=== PATIENT | male | born 1940 | race Caucasian/White ===

== ENCOUNTER 2023-10-09 14:52 | Inpatient (IN) | payer OTHER, MEDICAID ==
[~2023-10-09] VITALS: Ht 162.6 cm; Wt 68.0 kg
[~2023-10-09 14:52] MED LIST: ACET-8296 PO; BISA10SU62 RC; CALC500T46 PO; COL250 PO; HYDR-4004 PO; MAGN400S60 PO; MULT-404 PO; POLY1POW PO; SIMV10TA93 PO; VITA20002 PO
[2023-10-09 14:54] VITALS: BP 154/76; PULSE 105; RESP 21; TEMP 97.9; O2SAT 100
[2023-10-09 15:06] VITALS: PULSE 112; O2SAT 98
[2023-10-09 16:30] LABS: BASOPHILS % (AUTO) 0.1 % (0.0-2.0); EOSINOPHILS # (AUTO) 0.3 K/uL (0-0.4); EOSINOPHILS % (AUTO) 2.4 % (0.0-4.0); HEMATOCRIT 32.6 % (36-52); HEMOGLOBIN 10.7 g/dL (12.0-18.0); LYMPHOCYTES # (AUTO) 0.7 K/uL (2.0-11.5); LYMPHOCYTES % (AUTO) 5.7 % (20.5-51.1); MEAN CORPUSCULAR HEMOGLOBIN 29 pg (27-31); MEAN CORPUSCULAR HGB CONC 33 g/dL (33-37); MEAN CORPUSCULAR VOLUME 87.1 fL (80-94); MONOCYTES # (AUTO) 0.8 K/uL (0.8-1.0); NEUTROPHILS # (AUTO) 9.8 K/uL (1.8-7.7); NEUTROPHILS % (AUTO) 84.8 % (42.2-75.2); PLATELET COUNT (AUTO) 272 K/uL (140-450); RED BLOOD CELL COUNT(AUTO) 3.75 MIL/uL (4.20-6.10); RED CELL DISTRIBUTION WIDTH 17.8 % (11.6-13.7); WHITE BLOOD COUNT (AUTO) 11.5 K/uL (4.8-10.8)
[2023-10-09] MEDS ORDERED: NACL 0.9% 1,000 ML IV ONE (16:45)
[2023-10-09] MEDS ORDERED: PIPERACILLIN/TAZOBACTAM 3.375 GM in DEXTROSE 5% 50 ML IV ONE (16:45)
[2023-10-09] MEDS ORDERED: PIPERACILLIN/TAZOBACTAM 3.375 GM VIAL IV ONE (16:48)
[2023-10-09 16:51] LABS: SODIUM SERUM 138 mmol/L (136-145)
[2023-10-09 16:51] LABS: BLOOD GAS BASE EXCESS 18.2 mmol/L (-2.0-2.0); BLOOD GAS HCO3 44.7 mmol/L (22-26); BLOOD GAS PCO2 60.9 mmHg (35-45); BLOOD GAS PH 7.484 (7.35-7.45); BLOOD GAS PO2 119.6 mmHg (75-100)
[2023-10-09 16:52] LABS: BLOOD GAS O2 SAT% 98.2 % (92.0-98.5)
[2023-10-09 16:59] LABS: LACTIC ACID 0.9 mmol/L (0.4-2.0)
[2023-10-09 17:00] VITALS: PULSE 112; O2SAT 98
[2023-10-09 17:14] LABS: ALANINE AMINOTRANSFERASE 20 U/L (12-78); ALBUMIN 2.9 g/dL (3.4-5.0); ALKALINE PHOSPHATASE 103 U/L (50-136); ANION GAP 8.5 (8-16); ASPARTATE AMINOTRANSFERASE 18 U/L (15-37); CALCIUM 10.1 mg/dL (8.5-10.1); CHLORIDE 90 mmol/L (98-107); CREATINE KINASE, TOTAL 32 U/L (39-308); CREATININE 1.1 mg/dL (0.6-1.3); GLUCOSE 121 mg/dL (74-106); TOTAL BILIRUBIN 0.4 mg/dL (0.0-1.0); TOTAL PROTEIN, SERUM 7.3 g/dL (6.4-8.2); UREA NITROGEN, BLOOD 53 mg/dL (7-18)
[2023-10-09] MEDS ORDERED: KCL 20 MEQ IN 100 mL PREMIX 200 ML IV ONE (17:20)
[2023-10-09] MEDS ORDERED: MAG SULF 2000 MG/WATER PREMIX 50 ML IV ONE (17:20)
[2023-10-09 17:21] LABS: POTASSIUM 2.9 mmol/L (3.5-5.1)
[2023-10-09 17:22] LABS: CARBON DIOXIDE 42.4 mmol/L (21-32)
[2023-10-09 17:43] VITALS: PULSE 112; PULSE 116; O2SAT 97; O2SAT 98
[2023-10-09] MEDS: NACL 0.9% 1,000 ML IV SCH (18:29)
[2023-10-09] MEDS ORDERED: LORazepam 2 MG/ML VIAL IVP ONE (19:05)
[2023-10-09] MEDS ORDERED: LORazepam 2 MG/ML VIAL ONE (19:16)
[2023-10-09] MEDS ORDERED: LORazepam 2 MG/ML VIAL IVP STA (19:26)
[2023-10-09] MEDS ORDERED: MIDAZOLAM MDV 50 MG in NACL 0.9% 40 ML IV PRN (19:30)
[2023-10-09] MEDS ORDERED: MIDAZOLAM MDV 50 MG/10 ML VIAL IV ONE (19:40)
[2023-10-09 20:22] VITALS: O2SAT 95
[2023-10-09] MEDS ORDERED: POTASSIUM CHLORIDE 10 MEQ TABER PO PRN (21:45)
[2023-10-09] MEDS ORDERED: ZOLPIDEM 10 MG TAB PO PRN (21:45)
[2023-10-09] MEDS ORDERED: ACETAMINOPHEN 325 MG TAB PO PRN (21:45)
[2023-10-09] MEDS ORDERED: ONDANSETRON 4 MG/2 ML VIAL IVP PRN (21:45)
[2023-10-09] MEDS ORDERED: MORPHINE SULFATE 2 MG/ML SYR IVP PRN (21:45)
[2023-10-09] MEDS ORDERED: DOCUSATE SODIUM 100 MG GELCAP PO PRN (21:45)
[2023-10-09] MEDS ORDERED: MAG SULF 2000 MG/WATER PREMIX 50 ML IV PRN (21:45)
[2023-10-09] MEDS ORDERED: fentaNYL citrate 1 MG in NACL 0.9% 80 ML IV PRN (22:15)
[2023-10-09] MEDS ORDERED: fentaNYL citrate 0.05 MG/ML VIAL ONE (22:18)
[2023-10-09 23:18] VITALS: PULSE 81; O2SAT 98
[2023-10-10] VITALS (7 sets, daily range): PULSE 64–125; RESP 21; O2SAT 95–100
[2023-10-10] MEDS ORDERED: PIPERACILLIN/TAZOBACTAM 3.375 GM VIAL IV ONE ×6 (00:36→23:36)
[2023-10-10] MEDS ORDERED: NOREPINEPHRINE 4 MG in DEXTROSE 5% 250 ML IV STA (00:49)
[2023-10-10] MEDS ORDERED: NACL 0.9% 500 ML IV ONE (00:50)
[2023-10-10] MEDS ORDERED: PROPOFOL 1000 MG/100 ML PREMIX 100 ML IV STA (00:56)
[2023-10-10] MEDS: PIPERACILLIN/TAZOBACTAM 3.375 GM in DEXTROSE 5% 50 ML IV SCH ×4 (00:57→19:02)
[2023-10-10] MEDS ORDERED: NOREPINEPHRINE 4 MG/4 ML VIAL IV ONE ×6 (01:24→13:01)
[2023-10-10] MEDS: ACETAMINOPHEN 650 MG SUPP RC PRN ×2 (01:53→14:01)
[2023-10-10 02:01] LABS: APPEARANCE,URINE CLEAR (CLEAR); BILIRUBIN,URINE NEGATIVE (NEGATIVE); BLOOD, URINE 3+ (NEGATIVE); COLOR,URINE YELLOW (YELLOW); LEUKOCYTE ESTERASE ,URINE 3+ (NEGATIVE); NITRITE, URINE NEGATIVE (NEGATIVE); PH,URINE 8.5 (5.0-9.0); PROTEIN,URINE 2+ (NEGATIVE); UGLUCOSE NEGATIVE (NEGATIVE); UROBILINOGEN,URINE 0.2 EU/dL (0.2 - 1)
[2023-10-10 02:03] LABS: RBC,URINE TOO NUMEROUS TO COUN /HPF (0-5)
[2023-10-10 02:04] LABS: BACTERIA,URINE >30 (MANY) /HPF (None Seen); MUCUS,URINE 1+ /LPF (None Seen); SQUAMOUS EPITHELIAL CELL,UR 0-3 (FEW) /LPF (0-3 (FEW))
[2023-10-10 03:25] LABS: FLU A ANTIGEN negative (NEGATIVE); FLU B ANTIGEN NEGATIVE (NEGATIVE)
[2023-10-10 05:44] LABS: HEMATOCRIT 33.2 % (36-52); HEMOGLOBIN 10.7 g/dL (12.0-18.0); MEAN CORPUSCULAR HEMOGLOBIN 29 pg (27-31); MEAN CORPUSCULAR HGB CONC 32 g/dL (33-37); MEAN CORPUSCULAR VOLUME 89.3 fL (80-94); PLATELET COUNT (AUTO) 217 K/uL (140-450); RED BLOOD CELL COUNT(AUTO) 3.72 MIL/uL (4.20-6.10); RED CELL DISTRIBUTION WIDTH 18.4 % (11.6-13.7)
[2023-10-10 05:51] LABS: WHITE BLOOD COUNT (AUTO) 27.1 K/uL (4.8-10.8)
[2023-10-10] MEDS ORDERED: NOREPINEPHRINE 4 MG in DEXTROSE 5% 250 ML IV PRN (06:00)
[2023-10-10 07:04] LABS: ALANINE AMINOTRANSFERASE 71 U/L (12-78); ALBUMIN 2.5 g/dL (3.4-5.0); ALKALINE PHOSPHATASE 107 U/L (50-136); ANION GAP 12.3 (8-16); ASPARTATE AMINOTRANSFERASE 118 U/L (15-37); CARBON DIOXIDE 34.2 mmol/L (21-32); CHLORIDE 97 mmol/L (98-107); GLUCOSE 108 mg/dL (74-106); SODIUM SERUM 141 mmol/L (136-145); TOTAL BILIRUBIN 1.5 mg/dL (0.0-1.0); TOTAL PROTEIN, SERUM 6.5 g/dL (6.4-8.2)
[2023-10-10 07:44] LABS: POTASSIUM 2.5 mmol/L (3.5-5.1)
[2023-10-10 07:45] LABS: UREA NITROGEN, BLOOD 62 mg/dL (7-18)
[2023-10-10] MEDS: NACL 0.9% 1,000 ML IV SCH ×2 (07:55→19:02)
[2023-10-10 15:05] LABS: BLOOD GAS HCO3 28.2 mmol/L (22-26); BLOOD GAS PCO2 70.7 mmHg (35-45); BLOOD GAS PH 7.219 (7.35-7.45); BLOOD GAS PO2 103.1 mmHg (75-100)
[2023-10-10 15:06] LABS: BLOOD GAS BASE EXCESS -0.8 mmol/L (-2.0-2.0); BLOOD GAS O2 SAT% 96.7 % (92.0-98.5)
[2023-10-10] MEDS: POTASSIUM CHLORIDE 20% 40 MEQ/15 ML UDC GT SCH ×2 (16:00→22:01)
[2023-10-10] MEDS: NOREPINEPHRINE 8 MG in DEXTROSE 5% 250 ML IV PRN (20:37)
[2023-10-10] MEDS ORDERED: POTASSIUM CHLORIDE 20% 40 MEQ/15 ML UDC ONE (21:59)
[2023-10-11] VITALS (28 sets, daily range): BP systolic 77–147; BP diastolic 32–75; PULSE 56–122; RESP 14–28; TEMP 97.1–98.5; O2SAT 97–100
[2023-10-11] MEDS: PIPERACILLIN/TAZOBACTAM 3.375 GM in DEXTROSE 5% 50 ML IV SCH ×4 (00:15→18:29)
[2023-10-11] MEDS ORDERED: FOAM DRESSING TP PRN (02:15)
[2023-10-11] MEDS ORDERED: PIPERACILLIN/TAZOBACTAM 3.375 GM VIAL IV ONE (05:17)
[2023-10-11] MEDS ORDERED: NOREPINEPHRINE 4 MG/4 ML VIAL IV ONE (06:47)
[2023-10-11] MEDS: NOREPINEPHRINE 8 MG in DEXTROSE 5% 250 ML IV PRN ×2 (06:53→17:01)
[2023-10-11 07:15] LABS: ANION GAP 16.8 (8-16); CALCIUM 8.4 mg/dL (8.5-10.1); CARBON DIOXIDE 27.1 mmol/L (21-32); CHLORIDE 98 mmol/L (98-107); CREATININE 2.3 mg/dL (0.6-1.3); GLUCOSE 75 mg/dL (74-106); SODIUM SERUM 139 mmol/L (136-145)
[2023-10-11 07:17] LABS: POTASSIUM 2.9 mmol/L (3.5-5.1); UREA NITROGEN, BLOOD 61 mg/dL (7-18)
[2023-10-11 07:27] LABS: HEMATOCRIT 28.9 % (36-52); HEMOGLOBIN 9.4 g/dL (12.0-18.0); MEAN CORPUSCULAR HEMOGLOBIN 29 pg (27-31); MEAN CORPUSCULAR HGB CONC 33 g/dL (33-37); MEAN CORPUSCULAR VOLUME 88.9 fL (80-94); PLATELET COUNT (AUTO) 166 K/uL (140-450); RED BLOOD CELL COUNT(AUTO) 3.25 MIL/uL (4.20-6.10); RED CELL DISTRIBUTION WIDTH 17.7 % (11.6-13.7)
[2023-10-11 07:44] LABS: WHITE BLOOD COUNT (AUTO) 41.7 K/uL (4.8-10.8)
[2023-10-11 08:00] LABS: BLOOD GAS PCO2 55.1 mmHg (35-45); BLOOD GAS PH 7.308 (7.35-7.45); BLOOD GAS PO2 89.4 mmHg (75-100)
[2023-10-11 08:01] LABS: BLOOD GAS O2 SAT% 95.6 % (92.0-98.5)
[2023-10-11 08:47] LABS: BASOPHILS % (MANUAL) 0 % (0-2); BLASTS, MANUAL % 0 % (0-0); EOSINOPHILS % (MANUAL) 0 % (0-4); LYMPHOCYTES % (MANUAL) 3 % (20-46); METAMYELOCYTES % 5 % (0-0); MONOCYTES % (MANUAL) 2 % (5-12); MYELOCYTES % 3 % (0-0); OTHER CELLS,MANUAL % 0 (0-0); PLATELET ESTIMATE ADEQUATE; PROMYELOCYTES % 0 % (0-0)
[2023-10-11 08:48] LABS: ANISOCYTOSIS 1+
[2023-10-11] MEDS: KCL 20 MEQ IN 100 mL PREMIX 100 ML IV SCH ×3 (09:41→13:44)
[2023-10-11] MEDS: NACL 0.9% 1,000 ML IV SCH ×2 (09:42→23:40)
[2023-10-11] MEDS: PANTOPRAZOLE 40 MG INJ VIAL IVP SCH (09:43)
[2023-10-11] MEDS: LORazepam 2 MG/ML VIAL IVP PRN (15:36)
[2023-10-11] MEDS ORDERED: PROPOFOL 1000 MG/100 ML PREMIX 100 ML IV ONE (15:53)
[2023-10-11] MEDS ORDERED: PROPOFOL 1000 MG/100 ML PREMIX 100 ML IV PRN (15:55)
[2023-10-11] MEDS ORDERED: MEROPENEM 500 MG VIAL IV ONE (21:51)
[2023-10-11] MEDS ORDERED: AZITHROMYCIN 500 MG INJ VIAL IV ONE (21:52)
[2023-10-11] MEDS: MEROPENEM 500 MG in NACL 0.9% 50 ML IV SCH (21:58)
[2023-10-11] MEDS: AZITHROMYCIN 500 MG in DEXTROSE 5% 250 ML IV SCH (21:58)
[2023-10-11] MEDS: WARFARIN 5 MG TAB PO SCH ×2 (22:00→23:00)
[2023-10-11 23:02] LABS: INR 1.53 (0.8-1.2); PROTHROMBIN TIME 15.8 secs (10.8-13.4)
[2023-10-12] VITALS (35 sets, daily range): BP systolic 100–152; BP diastolic 47–77; PULSE 50–62; RESP 15–24; TEMP 97–98.7; O2SAT 98–100
[2023-10-12] MEDS: NOREPINEPHRINE 8 MG in DEXTROSE 5% 250 ML IV PRN (02:49)
[2023-10-12] MEDS ORDERED: MEROPENEM 500 MG VIAL IV ONE (05:49)
[2023-10-12] MEDS: MEROPENEM 500 MG in NACL 0.9% 50 ML IV SCH ×2 (05:52→20:46)
[2023-10-12 07:07] LABS: HEMATOCRIT 26.4 % (36-52); HEMOGLOBIN 8.5 g/dL (12.0-18.0); MEAN CORPUSCULAR HEMOGLOBIN 29 pg (27-31); MEAN CORPUSCULAR HGB CONC 32 g/dL (33-37); MEAN CORPUSCULAR VOLUME 88.6 fL (80-94); PLATELET COUNT (AUTO) 137 K/uL (140-450); RED BLOOD CELL COUNT(AUTO) 2.98 MIL/uL (4.20-6.10); RED CELL DISTRIBUTION WIDTH 18.6 % (11.6-13.7)
[2023-10-12 07:12] LABS: WHITE BLOOD COUNT (AUTO) 29.4 K/uL (4.8-10.8)
[2023-10-12 07:21] LABS: ANION GAP 13.9 (8-16); CALCIUM 8.5 mg/dL (8.5-10.1); CHLORIDE 104 mmol/L (98-107); CREATININE 2.2 mg/dL (0.6-1.3); GLUCOSE 101 mg/dL (74-106); SODIUM SERUM 141 mmol/L (136-145); UREA NITROGEN, BLOOD 52 mg/dL (7-18)
[2023-10-12 07:24] LABS: POTASSIUM 2.9 mmol/L (3.5-5.1)
[2023-10-12 07:40] LABS: BASOPHILS % (MANUAL) 0 % (0-2); EOSINOPHILS % (MANUAL) 1 % (0-4); LYMPHOCYTES % (MANUAL) 6 % (20-46); MONOCYTES % (MANUAL) 5 % (5-12); PLATELET ESTIMATE SLIGHTLY DECREASED
[2023-10-12] MEDS ORDERED: POTASSIUM CHLORIDE 40 MEQ, LIDOCAINE 1% 25 MG in NACL 0.9% 250 ML IV ONE (08:10)
[2023-10-12 09:34] LABS: INR 1.27 (0.8-1.2); PROTHROMBIN TIME 13.2 secs (10.8-13.4)
[2023-10-12] MEDS ORDERED: POTASSIUM CHLORIDE 20% 40 MEQ/15 ML UDC NG ONE (09:55)
[2023-10-12] MEDS: PANTOPRAZOLE 40 MG INJ VIAL IVP SCH (10:00)
[2023-10-12] MEDS ORDERED: KCL 20 MEQ IN 100 mL PREMIX 200 ML IV SCH ×2 (10:00→12:00)
[2023-10-12] MEDS: NACL 0.9% 1,000 ML IV SCH (10:24)
[2023-10-12] MEDS ORDERED: TPN PER PHARMACY MC PRN (11:00)
[2023-10-12] MEDS ORDERED: INSULIN LISPRO SLIDING SCALE 100 UNITS/ML VIAL SUBQ PRN (11:25)
[2023-10-12] MEDS: BLOOD GLUCOSE MONITORING 1 DEV DEV MC SCH ×3 (12:00→23:42)
[2023-10-12] MEDS ORDERED: KCL 20 MEQ IN 100 mL PREMIX 100 ML IV SCH (16:00)
[2023-10-12] MEDS: AZITHROMYCIN 500 MG in DEXTROSE 5% 250 ML IV SCH (19:20)
[2023-10-12] MEDS: DEXTROSE IV SCH ×3 (19:21)
[2023-10-12] MEDS: MULTIVITAMIN IV SCH ×3 (19:21)
[2023-10-12] MEDS: AMINO ACIDS IV SCH ×3 (19:21)
[2023-10-13] VITALS (39 sets, daily range): BP systolic 101–153; BP diastolic 50–97; PULSE 48–82; RESP 19–27; TEMP 97–99; O2SAT 95–100
[2023-10-13 05:36] LABS: BASOPHILS % (AUTO) 0.2 % (0.0-2.0); EOSINOPHILS # (AUTO) 0.7 K/uL (0-0.4); EOSINOPHILS % (AUTO) 4.4 % (0.0-4.0); HEMATOCRIT 26.1 % (36-52); HEMOGLOBIN 8.5 g/dL (12.0-18.0); LYMPHOCYTES # (AUTO) 0.8 K/uL (2.0-11.5); LYMPHOCYTES % (AUTO) 5.3 % (20.5-51.1); MEAN CORPUSCULAR HEMOGLOBIN 29 pg (27-31); MEAN CORPUSCULAR HGB CONC 33 g/dL (33-37); MEAN CORPUSCULAR VOLUME 88.8 fL (80-94); MONOCYTES # (AUTO) 0.6 K/uL (0.8-1.0); NEUTROPHILS # (AUTO) 12.8 K/uL (1.8-7.7); NEUTROPHILS % (AUTO) 86.1 % (42.2-75.2); PLATELET COUNT (AUTO) 124 K/uL (140-450); RED BLOOD CELL COUNT(AUTO) 2.94 MIL/uL (4.20-6.10); RED CELL DISTRIBUTION WIDTH 18.5 % (11.6-13.7); WHITE BLOOD COUNT (AUTO) 14.8 K/uL (4.8-10.8)
[2023-10-13] MEDS: BLOOD GLUCOSE MONITORING 1 DEV DEV MC SCH ×4 (06:04→23:38)
[2023-10-13 06:06] LABS: ANION GAP 10.4 (8-16); CALCIUM 8.8 mg/dL (8.5-10.1); CARBON DIOXIDE 27.3 mmol/L (21-32); CHLORIDE 111 mmol/L (98-107); CREATININE 1.8 mg/dL (0.6-1.3); GLUCOSE 100 mg/dL (74-106); POTASSIUM 3.7 mmol/L (3.5-5.1); SODIUM SERUM 145 mmol/L (136-145); UREA NITROGEN, BLOOD 43 mg/dL (7-18)
[2023-10-13 06:18] LABS: MAGNESIUM 2.3 mg/dL (1.8-2.4)
[2023-10-13] MEDS: MEROPENEM 500 MG in NACL 0.9% 50 ML IV SCH ×2 (08:51→20:32)
[2023-10-13] MEDS: PANTOPRAZOLE 40 MG INJ VIAL IVP SCH (08:51)
[2023-10-13] MEDS ORDERED: GAUZE TP PRN (11:35)
[2023-10-13] MEDS ORDERED: NON ADHERENT DRESSING TP PRN (11:35)
[2023-10-13] MEDS: GAUZE TP SCH (12:57)
[2023-10-13] MEDS: NON ADHERENT DRESSING TP SCH (12:58)
[2023-10-13] MEDS ORDERED: POTASSIUM PHOSPHATE 15 MM in NACL 0.9% 250 ML IV ONE (13:00)
[2023-10-13] MEDS: AZITHROMYCIN 500 MG in DEXTROSE 5% 250 ML IV SCH (18:28)
[2023-10-13] MEDS: MULTIVITAMIN IV SCH ×12 (19:22→19:32)
[2023-10-13] MEDS: DEXTROSE IV SCH ×12 (19:22→19:32)
[2023-10-13] MEDS: AMINO ACIDS IV SCH ×12 (19:22→19:32)
[2023-10-14] VITALS (32 sets, daily range): BP systolic 105–152; BP diastolic 42–103; PULSE 66–91; RESP 20–25; TEMP 97–101.3; O2SAT 97–100
[2023-10-14] MEDS: LORazepam 2 MG/ML VIAL IVP PRN (00:29)
[2023-10-14] MEDS: GAUZE TP SCH ×2 (01:00→13:53)
[2023-10-14 05:40] LABS: BASOPHILS % (AUTO) 0.1 % (0.0-2.0); EOSINOPHILS # (AUTO) 0.1 K/uL (0-0.4); EOSINOPHILS % (AUTO) 0.3 % (0.0-4.0); HEMATOCRIT 21.8 % (36-52); LYMPHOCYTES # (AUTO) 0.9 K/uL (2.0-11.5); LYMPHOCYTES % (AUTO) 3.6 % (20.5-51.1); MEAN CORPUSCULAR HEMOGLOBIN 29 pg (27-31); MEAN CORPUSCULAR HGB CONC 32 g/dL (33-37); MEAN CORPUSCULAR VOLUME 89.1 fL (80-94); MONOCYTES # (AUTO) 1.3 K/uL (0.8-1.0); MONOCYTES % (AUTO) 5.2 % (1.7-9.3); NEUTROPHILS # (AUTO) 22.8 K/uL (1.8-7.7); NEUTROPHILS % (AUTO) 90.8 % (42.2-75.2); PLATELET COUNT (AUTO) 158 K/uL (140-450); RED BLOOD CELL COUNT(AUTO) 2.44 MIL/uL (4.20-6.10); RED CELL DISTRIBUTION WIDTH 18.5 % (11.6-13.7)
[2023-10-14] MEDS: BLOOD GLUCOSE MONITORING 1 DEV DEV MC SCH ×3 (05:40→17:46)
[2023-10-14 05:50] LABS: WHITE BLOOD COUNT (AUTO) 25.1 K/uL (4.8-10.8)
[2023-10-14 06:11] LABS: ANION GAP 16.2 (8-16); CALCIUM 8.6 mg/dL (8.5-10.1); CARBON DIOXIDE 21.6 mmol/L (21-32); CHLORIDE 112 mmol/L (98-107); CREATININE 2.2 mg/dL (0.6-1.3); GLUCOSE 138 mg/dL (74-106); POTASSIUM 4.8 mmol/L (3.5-5.1); SODIUM SERUM 145 mmol/L (136-145); UREA NITROGEN, BLOOD 52 mg/dL (7-18)
[2023-10-14 06:19] LABS: MAGNESIUM 1.9 mg/dL (1.8-2.4); PHOSPHORUS 4.1 mg/dL (2.5-4.9)
[2023-10-14] MEDS: ACETAMINOPHEN 650 MG SUPP RC PRN (08:42)
[2023-10-14] MEDS: MEROPENEM 500 MG in NACL 0.9% 50 ML IV SCH ×2 (08:42→20:07)
[2023-10-14] MEDS: PANTOPRAZOLE 40 MG INJ VIAL IVP SCH (08:43)
[2023-10-14] MEDS: Z-GUARD PASTE TP PRN ×2 (08:43→18:40)
[2023-10-14] MEDS ORDERED: FUROSEMIDE 40 MG/4 ML VIAL IVP SCH (13:45)
[2023-10-14] MEDS: NON ADHERENT DRESSING TP SCH (13:52)
[2023-10-14] MEDS: AZITHROMYCIN 500 MG in DEXTROSE 5% 250 ML IV SCH (18:29)
[2023-10-14] MEDS: ALBUTEROL SULFATE/IPRATROPIU 3 ML SOL IH PRN (19:29)
[2023-10-14] MEDS: AMINO ACIDS IV SCH ×2 (19:32)
[2023-10-14] MEDS: DEXTROSE 20% IV SCH ×2 (19:32)
[2023-10-15] VITALS (32 sets, daily range): BP systolic 89–132; BP diastolic 44–67; PULSE 63–115; RESP 16–22; TEMP 97.3–98.2; O2SAT 97–100
[2023-10-15] MEDS: BLOOD GLUCOSE MONITORING 1 DEV DEV MC SCH ×5 (00:57→23:47)
[2023-10-15] MEDS: GAUZE TP SCH ×2 (00:58→13:24)
[2023-10-15] MEDS: PIPERACILLIN/TAZOBACTAM 2.25 GM in DEXTROSE 5% 50 ML IV SCH ×4 (04:41→23:38)
[2023-10-15] MEDS ORDERED: PIPERACILLIN/TAZOBACTAM 2.25 GM VIAL IV ONE (04:54)
[2023-10-15 05:37] LABS: BASOPHILS % (AUTO) 0.2 % (0.0-2.0); EOSINOPHILS # (AUTO) 0.4 K/uL (0-0.4); EOSINOPHILS % (AUTO) 1.7 % (0.0-4.0); LYMPHOCYTES # (AUTO) 1.3 K/uL (2.0-11.5); MEAN CORPUSCULAR HEMOGLOBIN 29 pg (27-31); MEAN CORPUSCULAR HGB CONC 32 g/dL (33-37); MEAN CORPUSCULAR VOLUME 88.5 fL (80-94); MONOCYTES # (AUTO) 1.7 K/uL (0.8-1.0); MONOCYTES % (AUTO) 7.9 % (1.7-9.3); NEUTROPHILS # (AUTO) 18.4 K/uL (1.8-7.7); NEUTROPHILS % (AUTO) 84.2 % (42.2-75.2); PLATELET COUNT (AUTO) 118 K/uL (140-450); RED CELL DISTRIBUTION WIDTH 18.3 % (11.6-13.7); WHITE BLOOD COUNT (AUTO) 21.9 K/uL (4.8-10.8)
[2023-10-15 05:46] LABS: HEMOGLOBIN 5.1 g/dL (12.0-18.0)
[2023-10-15 05:47] LABS: HEMATOCRIT 15.9 % (36-52)
[2023-10-15 06:17] LABS: ALANINE AMINOTRANSFERASE 38 U/L (12-78); ALBUMIN 1.6 g/dL (3.4-5.0); ALKALINE PHOSPHATASE 66 U/L (50-136); ANION GAP 13.9 (8-16); ASPARTATE AMINOTRANSFERASE 35 U/L (15-37); CALCIUM 7.9 mg/dL (8.5-10.1); CARBON DIOXIDE 23.8 mmol/L (21-32); CHLORIDE 111 mmol/L (98-107); CREATININE 2.5 mg/dL (0.6-1.3); GLUCOSE 132 mg/dL (74-106); POTASSIUM 3.7 mmol/L (3.5-5.1); SODIUM SERUM 145 mmol/L (136-145); TOTAL BILIRUBIN 0.4 mg/dL (0.0-1.0); TOTAL PROTEIN, SERUM 5.1 g/dL (6.4-8.2)
[2023-10-15 06:19] LABS: UREA NITROGEN, BLOOD 61 mg/dL (7-18)
[2023-10-15 06:20] LABS: MAGNESIUM 2.2 mg/dL (1.8-2.4); PHOSPHORUS 4.5 mg/dL (2.5-4.9)
[2023-10-15] MEDS: PANTOPRAZOLE 40 MG INJ VIAL IVP SCH ×2 (09:30→20:21)
[2023-10-15] MEDS: NON ADHERENT DRESSING TP SCH (13:25)
[2023-10-15] MEDS: NOREPINEPHRINE 8 MG in DEXTROSE 5% 250 ML IV PRN (13:29)
[2023-10-15] MEDS ORDERED: fentaNYL citrate 0.05 MG/ML VIAL ONE (14:02)
[2023-10-15] MEDS ORDERED: MIDAZOLAM 2 MG/2 ML VIAL ONE (14:03)
[2023-10-15] MEDS ORDERED: MIDAZOLAM 2 MG/2 ML VIAL IVP ONE (15:10)
[2023-10-15] MEDS ORDERED: fentaNYL citrate 0.05 MG/ML VIAL IVP ONE (15:10)
[2023-10-15] MEDS ORDERED: LORazepam 1 MG TAB PO PRN (16:10)
[2023-10-15] MEDS: SUCRALFATE 1 GM TAB PO SCH (17:09)
[2023-10-15] MEDS: DEXTROSE 20% IV SCH ×2 (19:32)
[2023-10-15] MEDS: AMINO ACIDS IV SCH ×2 (19:32)
[2023-10-15] MEDS: ALBUTEROL SULFATE/IPRATROPIU 3 ML SOL IH PRN (20:03)
[2023-10-16] VITALS (29 sets, daily range): BP systolic 88–128; BP diastolic 43–88; PULSE 61–75; RESP 15–27; TEMP 97–98.4; O2SAT 95–100
[2023-10-16] MEDS: GAUZE TP SCH ×2 (00:15→12:39)
[2023-10-16 05:41] LABS: BASOPHILS % (AUTO) 0.2 % (0.0-2.0); EOSINOPHILS # (AUTO) 0.8 K/uL (0-0.4); EOSINOPHILS % (AUTO) 4.6 % (0.0-4.0); HEMOGLOBIN 7.6 g/dL (12.0-18.0); LYMPHOCYTES # (AUTO) 1.2 K/uL (2.0-11.5); LYMPHOCYTES % (AUTO) 6.3 % (20.5-51.1); MEAN CORPUSCULAR HEMOGLOBIN 28 pg (27-31); MEAN CORPUSCULAR HGB CONC 33 g/dL (33-37); MEAN CORPUSCULAR VOLUME 84.7 fL (80-94); MONOCYTES # (AUTO) 1.2 K/uL (0.8-1.0); MONOCYTES % (AUTO) 6.7 % (1.7-9.3); NEUTROPHILS # (AUTO) 15.1 K/uL (1.8-7.7); NEUTROPHILS % (AUTO) 82.2 % (42.2-75.2); PLATELET COUNT (AUTO) 128 K/uL (140-450); RED BLOOD CELL COUNT(AUTO) 2.72 MIL/uL (4.20-6.10); RED CELL DISTRIBUTION WIDTH 17.3 % (11.6-13.7); WHITE BLOOD COUNT (AUTO) 18.4 K/uL (4.8-10.8)
[2023-10-16] MEDS: BLOOD GLUCOSE MONITORING 1 DEV DEV MC SCH ×4 (06:07→23:15)
[2023-10-16] MEDS: PIPERACILLIN/TAZOBACTAM 2.25 GM in DEXTROSE 5% 50 ML IV SCH ×3 (06:07→20:36)
[2023-10-16 06:31] LABS: ALANINE AMINOTRANSFERASE 38 U/L (12-78); ALBUMIN 1.5 g/dL (3.4-5.0); ALKALINE PHOSPHATASE 70 U/L (50-136); ANION GAP 10.9 (8-16); ASPARTATE AMINOTRANSFERASE 32 U/L (15-37); CALCIUM 7.9 mg/dL (8.5-10.1); CARBON DIOXIDE 26.7 mmol/L (21-32); CHLORIDE 108 mmol/L (98-107); CREATININE 2.3 mg/dL (0.6-1.3); GLUCOSE 108 mg/dL (74-106); POTASSIUM 3.6 mmol/L (3.5-5.1); SODIUM SERUM 142 mmol/L (136-145); TOTAL BILIRUBIN 0.6 mg/dL (0.0-1.0); TOTAL PROTEIN, SERUM 5.3 g/dL (6.4-8.2); UREA NITROGEN, BLOOD 27 mg/dL (7-18)
[2023-10-16 06:39] LABS: MAGNESIUM 2.3 mg/dL (1.8-2.4); PHOSPHORUS 4.2 mg/dL (2.5-4.9)
[2023-10-16 08:43] LABS: BLOOD GAS BASE EXCESS 0.2 mmol/L (-2.0-2.0); BLOOD GAS HCO3 23.9 mmol/L (22-26); BLOOD GAS O2 SAT% 95.1 % (92.0-98.5); BLOOD GAS PCO2 34.8 mmHg (35-45); BLOOD GAS PH 7.454 (7.35-7.45); BLOOD GAS PO2 77.6 mmHg (75-100)
[2023-10-16] MEDS: SUCRALFATE 1 GM TAB PO SCH ×3 (09:56→18:00)
[2023-10-16] MEDS: PANTOPRAZOLE 40 MG INJ VIAL IVP SCH ×2 (09:56→20:36)
[2023-10-16] MEDS: NON ADHERENT DRESSING TP SCH (12:40)
[2023-10-16] MEDS ORDERED: VANCOMYCIN PER PHARMACY MC PRN (16:25)
[2023-10-16] MEDS ORDERED: VANCOMYCIN 1,000 MG in DEXTROSE 5% 250 ML IV SCH (18:00)
[2023-10-16] MEDS: DEXTROSE 20% IV SCH ×2 (20:00)
[2023-10-16] MEDS: AMINO ACIDS IV SCH ×2 (20:00)
[2023-10-17] VITALS (13 sets, daily range): BP systolic 94–125; BP diastolic 45–63; PULSE 67–82; RESP 16–26; TEMP 97.2–98.6; O2SAT 96–100
[2023-10-17] MEDS: GAUZE TP SCH ×2 (00:47→13:00)
[2023-10-17] MEDS: PIPERACILLIN/TAZOBACTAM 2.25 GM in DEXTROSE 5% 50 ML IV SCH ×3 (04:32→21:02)
[2023-10-17] MEDS: BLOOD GLUCOSE MONITORING 1 DEV DEV MC SCH (05:40)
[2023-10-17] MEDS: SUCRALFATE 1 GM TAB PO SCH ×3 (09:00→16:09)
[2023-10-17] MEDS: PANTOPRAZOLE 40 MG INJ VIAL IVP SCH ×2 (09:04→21:02)
[2023-10-17 09:27] LABS: HEMATOCRIT 22.5 % (36-52); HEMOGLOBIN 7.4 g/dL (12.0-18.0); MEAN CORPUSCULAR HEMOGLOBIN 28 pg (27-31); MEAN CORPUSCULAR HGB CONC 33 g/dL (33-37); MEAN CORPUSCULAR VOLUME 85.8 fL (80-94); PLATELET COUNT (AUTO) 179 K/uL (140-450); RED BLOOD CELL COUNT(AUTO) 2.63 MIL/uL (4.20-6.10); RED CELL DISTRIBUTION WIDTH 17.8 % (11.6-13.7)
[2023-10-17 09:50] LABS: ALANINE AMINOTRANSFERASE 38 U/L (12-78); ALBUMIN 1.3 g/dL (3.4-5.0); ALKALINE PHOSPHATASE 78 U/L (50-136); ANION GAP 8.4 (8-16); ASPARTATE AMINOTRANSFERASE 29 U/L (15-37); CALCIUM 7.9 mg/dL (8.5-10.1); CARBON DIOXIDE 27.2 mmol/L (21-32); CHLORIDE 109 mmol/L (98-107); GLUCOSE 84 mg/dL (74-106); POTASSIUM 3.6 mmol/L (3.5-5.1); SODIUM SERUM 141 mmol/L (136-145); TOTAL BILIRUBIN 0.8 mg/dL (0.0-1.0); TOTAL PROTEIN, SERUM 5.2 g/dL (6.4-8.2); UREA NITROGEN, BLOOD 46 mg/dL (7-18)
[2023-10-17 10:01] LABS: ANISOCYTOSIS 1+; BASOPHILS % (MANUAL) 0 % (0-2); BLASTS, MANUAL % 0 % (0-0); EOSINOPHILS % (MANUAL) 0 % (0-4); LYMPHOCYTES % (MANUAL) 8 % (20-46); METAMYELOCYTES % 0 % (0-0); MONOCYTES % (MANUAL) 4 % (5-12); MYELOCYTES % 0 % (0-0); OTHER CELLS,MANUAL % 0 (0-0); PLATELET ESTIMATE ADEQUATE; PROMYELOCYTES % 0 % (0-0)
[2023-10-17 10:03] LABS: PHOSPHORUS 3.8 mg/dL (2.5-4.9)
[2023-10-17] MEDS ORDERED: VANCOMYCIN 1,000 MG in DEXTROSE 5% 250 ML IV SCH (11:00)
[2023-10-17] MEDS ORDERED: POTASSIUM CHLORIDE 20% 40 MEQ/15 ML UDC GT SCH (12:39)
[2023-10-17] MEDS ORDERED: ALBUMIN HUMAN 25% 100 ML IV SCH (13:00)
[2023-10-17] MEDS: NON ADHERENT DRESSING TP SCH (13:00)
[2023-10-17] MEDS ORDERED: FUROSEMIDE 20 MG/2 ML VIAL IVP SCH (13:00)
[2023-10-17] MEDS: ALBUTEROL SULFATE/IPRATROPIU 3 ML SOL IH PRN (13:01)
[2023-10-17] MEDS: FUROSEMIDE 20 MG/2 ML VIAL IVP SCH ×2 (13:21→20:51)
[2023-10-17] MEDS: MIDODRINE 5 MG TAB PO SCH ×2 (13:22→16:09)
[2023-10-17] MEDS: FERROUS SULFATE 300 MG/5 ML UDC GT SCH (21:02)
[2023-10-18] VITALS (12 sets, daily range): BP systolic 123–136; BP diastolic 38–85; PULSE 67–86; RESP 18–26; TEMP 97.2–98.4; O2SAT 96–99
[2023-10-18] MEDS: GAUZE TP SCH ×2 (01:50→13:23)
[2023-10-18] MEDS: PIPERACILLIN/TAZOBACTAM 2.25 GM in DEXTROSE 5% 50 ML IV SCH ×2 (05:11→13:24)
[2023-10-18 07:33] LABS: BASOPHILS # (AUTO) 0.1 K/uL (0.00-0.22); BASOPHILS % (AUTO) 0.3 % (0.0-2.0); EOSINOPHILS # (AUTO) 0.7 K/uL (0-0.4); EOSINOPHILS % (AUTO) 2.9 % (0.0-4.0); HEMATOCRIT 24.4 % (36-52); HEMOGLOBIN 7.9 g/dL (12.0-18.0); LYMPHOCYTES % (AUTO) 4.2 % (20.5-51.1); MEAN CORPUSCULAR HEMOGLOBIN 28 pg (27-31); MEAN CORPUSCULAR HGB CONC 33 g/dL (33-37); MEAN CORPUSCULAR VOLUME 86.5 fL (80-94); MONOCYTES # (AUTO) 1.7 K/uL (0.8-1.0); MONOCYTES % (AUTO) 6.8 % (1.7-9.3); NEUTROPHILS # (AUTO) 21.4 K/uL (1.8-7.7); NEUTROPHILS % (AUTO) 85.8 % (42.2-75.2); PLATELET COUNT (AUTO) 257 K/uL (140-450); RED BLOOD CELL COUNT(AUTO) 2.82 MIL/uL (4.20-6.10); RED CELL DISTRIBUTION WIDTH 17.5 % (11.6-13.7)
[2023-10-18 08:13] LABS: ALANINE AMINOTRANSFERASE 32 U/L (12-78); ALBUMIN 1.7 g/dL (3.4-5.0); ALKALINE PHOSPHATASE 93 U/L (50-136); ANION GAP 11.8 (8-16); ASPARTATE AMINOTRANSFERASE 26 U/L (15-37); CALCIUM 8.3 mg/dL (8.5-10.1); CARBON DIOXIDE 26.3 mmol/L (21-32); CHLORIDE 107 mmol/L (98-107); CREATININE 2.1 mg/dL (0.6-1.3); GLUCOSE 94 mg/dL (74-106); POTASSIUM 4.1 mmol/L (3.5-5.1); SODIUM SERUM 141 mmol/L (136-145); TOTAL BILIRUBIN 1.1 mg/dL (0.0-1.0); TOTAL PROTEIN, SERUM 6.2 g/dL (6.4-8.2); UREA NITROGEN, BLOOD 43 mg/dL (7-18)
[2023-10-18] MEDS: FERROUS SULFATE 300 MG/5 ML UDC GT SCH ×2 (09:48→21:27)
[2023-10-18] MEDS: SUCRALFATE 1 GM TAB PO SCH ×3 (09:48→17:00)
[2023-10-18] MEDS: PANTOPRAZOLE 40 MG INJ VIAL IVP SCH ×2 (09:48→21:27)
[2023-10-18] MEDS: MIDODRINE 5 MG TAB PO SCH ×3 (09:48→17:00)
[2023-10-18] MEDS: BLOOD GLUCOSE MONITORING 1 DEV DEV FS SCH ×3 (11:30→21:33)
[2023-10-18] MEDS: NON ADHERENT DRESSING TP SCH (13:23)
[2023-10-18] MEDS ORDERED: CEFEPIME 1,000 MG VIAL ONE (21:20)
[2023-10-18] MEDS: CEFEPIME 1,000 MG in DEXTROSE 5% 50 ML IV SCH (21:27)
[2023-10-18] MEDS: Z-GUARD PASTE TP PRN (21:28)
[2023-10-18] MEDS: FLUCONAZOLE 100 MG/NS PREMIX 50 ML IV SCH (22:00)
[2023-10-18] MEDS ORDERED: FLUCONAZOLE 200 MG/NS PREMIX 100 ML IV ONE (22:37)
[2023-10-19] VITALS (14 sets, daily range): BP systolic 118–129; BP diastolic 47–63; PULSE 65–79; RESP 18–20; TEMP 97.2–98.1; O2SAT 94–100
[2023-10-19] MEDS: GAUZE TP SCH ×2 (01:46→13:00)
[2023-10-19 06:34] LABS: BASOPHILS # (AUTO) 0.1 K/uL (0.00-0.22); BASOPHILS % (AUTO) 0.3 % (0.0-2.0); EOSINOPHILS # (AUTO) 0.5 K/uL (0-0.4); EOSINOPHILS % (AUTO) 2.6 % (0.0-4.0); HEMATOCRIT 22.1 % (36-52); HEMOGLOBIN 7.2 g/dL (12.0-18.0); LYMPHOCYTES # (AUTO) 1.1 K/uL (2.0-11.5); LYMPHOCYTES % (AUTO) 5.2 % (20.5-51.1); MEAN CORPUSCULAR HEMOGLOBIN 28 pg (27-31); MEAN CORPUSCULAR HGB CONC 32 g/dL (33-37); MEAN CORPUSCULAR VOLUME 86.7 fL (80-94); MONOCYTES # (AUTO) 1.5 K/uL (0.8-1.0); NEUTROPHILS # (AUTO) 17.8 K/uL (1.8-7.7); NEUTROPHILS % (AUTO) 84.9 % (42.2-75.2); PLATELET COUNT (AUTO) 277 K/uL (140-450); RED BLOOD CELL COUNT(AUTO) 2.55 MIL/uL (4.20-6.10); RED CELL DISTRIBUTION WIDTH 17.5 % (11.6-13.7)
[2023-10-19 06:58] LABS: ANION GAP 12.7 (8-16); CALCIUM 8.4 mg/dL (8.5-10.1); CHLORIDE 112 mmol/L (98-107); CREATININE 1.9 mg/dL (0.6-1.3); GLUCOSE 93 mg/dL (74-106); POTASSIUM 3.7 mmol/L (3.5-5.1); SODIUM SERUM 147 mmol/L (136-145); UREA NITROGEN, BLOOD 37 mg/dL (7-18)
[2023-10-19] MEDS: BLOOD GLUCOSE MONITORING 1 DEV DEV FS SCH ×4 (07:09→20:07)
[2023-10-19] MEDS: Z-GUARD PASTE TP PRN (08:24)
[2023-10-19] MEDS: FERROUS SULFATE 300 MG/5 ML UDC GT SCH ×2 (08:25→21:00)
[2023-10-19] MEDS: MIDODRINE 5 MG TAB PO SCH ×3 (08:25→17:00)
[2023-10-19] MEDS: SUCRALFATE 1 GM TAB PO SCH ×3 (09:00→17:00)
[2023-10-19] MEDS: CEFEPIME 1,000 MG in DEXTROSE 5% 50 ML IV SCH ×2 (09:00→20:06)
[2023-10-19] MEDS: PANTOPRAZOLE 40 MG INJ VIAL IVP SCH ×2 (09:00→21:01)
[2023-10-19] MEDS ORDERED: VANCOMYCIN 1,000 MG in DEXTROSE 5% 250 ML IV SCH (12:00)
[2023-10-19] MEDS: NON ADHERENT DRESSING TP SCH (13:00)
[2023-10-19] MEDS: FLUCONAZOLE 100 MG/NS PREMIX 50 ML IV SCH (22:00)
[2023-10-20] VITALS (17 sets, daily range): BP systolic 114–129; BP diastolic 40–76; PULSE 64–76; RESP 18–20; TEMP 97–98.8; O2SAT 97–100
[2023-10-20] MEDS: GAUZE TP SCH ×2 (01:01→13:00)
[2023-10-20] MEDS: BLOOD GLUCOSE MONITORING 1 DEV DEV FS SCH ×4 (06:42→21:04)
[2023-10-20 07:00] LABS: HEMOGLOBIN 7.8 g/dL (12.0-18.0); MEAN CORPUSCULAR HEMOGLOBIN 28 pg (27-31); MEAN CORPUSCULAR HGB CONC 32 g/dL (33-37); MEAN CORPUSCULAR VOLUME 87.7 fL (80-94); PLATELET COUNT (AUTO) 332 K/uL (140-450); RED BLOOD CELL COUNT(AUTO) 2.73 MIL/uL (4.20-6.10); WHITE BLOOD COUNT (AUTO) 17.4 K/uL (4.8-10.8)
[2023-10-20 07:27] LABS: ALANINE AMINOTRANSFERASE 21 U/L (12-78); ALBUMIN 1.5 g/dL (3.4-5.0); ALKALINE PHOSPHATASE 76 U/L (50-136); ANION GAP 11.8 (8-16); ASPARTATE AMINOTRANSFERASE 21 U/L (15-37); CALCIUM 8.5 mg/dL (8.5-10.1); CHLORIDE 112 mmol/L (98-107); CREATININE 1.9 mg/dL (0.6-1.3); GLUCOSE 80 mg/dL (74-106); POTASSIUM 3.8 mmol/L (3.5-5.1); SODIUM SERUM 146 mmol/L (136-145); TOTAL BILIRUBIN 0.9 mg/dL (0.0-1.0); TOTAL PROTEIN, SERUM 6.1 g/dL (6.4-8.2); UREA NITROGEN, BLOOD 30 mg/dL (7-18)
[2023-10-20 07:54] LABS: MONOCYTES % (MANUAL) 9 % (5-12)
[2023-10-20 07:56] LABS: EOSINOPHILS % (MANUAL) 1 % (0-4)
[2023-10-20 07:57] LABS: LYMPHOCYTES % (MANUAL) 8 % (20-46)
[2023-10-20] MEDS: SUCRALFATE 1 GM TAB PO SCH ×3 (08:33→16:37)
[2023-10-20] MEDS: FERROUS SULFATE 300 MG/5 ML UDC GT SCH ×2 (08:33→21:03)
[2023-10-20] MEDS: MIDODRINE 5 MG TAB PO SCH ×3 (08:33→16:36)
[2023-10-20] MEDS: PANTOPRAZOLE 40 MG INJ VIAL IVP SCH ×2 (08:33→21:03)
[2023-10-20] MEDS: CEFEPIME 1,000 MG in DEXTROSE 5% 50 ML IV SCH ×2 (09:02→21:03)
[2023-10-20] MEDS: NON ADHERENT DRESSING TP SCH (13:00)
[2023-10-21] VITALS (14 sets, daily range): BP systolic 87–141; BP diastolic 39–63; PULSE 62–72; RESP 18–24; TEMP 97.8–99; O2SAT 97–100
[2023-10-21] MEDS: GAUZE TP SCH ×2 (01:23→13:14)
[2023-10-21] MEDS: BLOOD GLUCOSE MONITORING 1 DEV DEV FS SCH ×4 (06:33→20:51)
[2023-10-21 07:12] LABS: BASOPHILS % (AUTO) 0.2 % (0.0-2.0); EOSINOPHILS # (AUTO) 0.4 K/uL (0-0.4); EOSINOPHILS % (AUTO) 2.6 % (0.0-4.0); HEMATOCRIT 22.8 % (36-52); HEMOGLOBIN 7.3 g/dL (12.0-18.0); LYMPHOCYTES # (AUTO) 1.2 K/uL (2.0-11.5); LYMPHOCYTES % (AUTO) 8.2 % (20.5-51.1); MEAN CORPUSCULAR HEMOGLOBIN 28 pg (27-31); MEAN CORPUSCULAR HGB CONC 32 g/dL (33-37); MEAN CORPUSCULAR VOLUME 87.4 fL (80-94); MONOCYTES # (AUTO) 1.3 K/uL (0.8-1.0); MONOCYTES % (AUTO) 8.7 % (1.7-9.3); NEUTROPHILS # (AUTO) 11.8 K/uL (1.8-7.7); NEUTROPHILS % (AUTO) 80.3 % (42.2-75.2); PLATELET COUNT (AUTO) 379 K/uL (140-450); RED CELL DISTRIBUTION WIDTH 16.8 % (11.6-13.7); WHITE BLOOD COUNT (AUTO) 14.7 K/uL (4.8-10.8)
[2023-10-21 07:27] LABS: ALANINE AMINOTRANSFERASE 16 U/L (12-78); ALBUMIN 1.4 g/dL (3.4-5.0); ALKALINE PHOSPHATASE 75 U/L (50-136); ANION GAP 10.6 (8-16); ASPARTATE AMINOTRANSFERASE 15 U/L (15-37); CALCIUM 8.3 mg/dL (8.5-10.1); CARBON DIOXIDE 26.2 mmol/L (21-32); CHLORIDE 113 mmol/L (98-107); CREATININE 1.9 mg/dL (0.6-1.3); GLUCOSE 108 mg/dL (74-106); POTASSIUM 3.8 mmol/L (3.5-5.1); SODIUM SERUM 146 mmol/L (136-145); TOTAL BILIRUBIN 0.7 mg/dL (0.0-1.0); TOTAL PROTEIN, SERUM 5.9 g/dL (6.4-8.2); UREA NITROGEN, BLOOD 29 mg/dL (7-18)
[2023-10-21] MEDS: FERROUS SULFATE 300 MG/5 ML UDC GT SCH ×2 (09:04→20:53)
[2023-10-21] MEDS: MIDODRINE 5 MG TAB PO SCH ×3 (09:04→17:00)
[2023-10-21] MEDS: PANTOPRAZOLE 40 MG INJ VIAL IVP SCH ×2 (09:04→20:39)
[2023-10-21] MEDS: CEFEPIME 1,000 MG in DEXTROSE 5% 50 ML IV SCH ×2 (09:05→20:38)
[2023-10-21] MEDS: SUCRALFATE 1 GM TAB PO SCH ×3 (09:05→17:00)
[2023-10-21] MEDS ORDERED: VANCOMYCIN 750 MG in DEXTROSE 5% 250 ML IV SCH (12:00)
[2023-10-21] MEDS: NON ADHERENT DRESSING TP SCH (13:14)
[2023-10-21] MEDS ORDERED: Gauze TP ×2 (19:37)
[2023-10-21] MEDS ORDERED: FER300L GT (19:37)
[2023-10-21] MEDS ORDERED: [UNRECOGNIZED DRUG - REMARK] TP ×2 (19:37)
[2023-10-21] MEDS ORDERED: Vancomycin Per Pharmacy MC (19:37)
[2023-10-21] MEDS ORDERED: PRO40I IVP (19:37)
[2023-10-21] MEDS ORDERED: SUCR1TAB56 PO (19:37)
[2023-10-21] MEDS ORDERED: HUMSLIDE SUBQ (19:37)
[2023-10-21] MEDS ORDERED: Foam Dressing TP (19:37)
[2023-10-21] MEDS ORDERED: ONDA2SOL45 IVP (19:37)
[2023-10-21] MEDS ORDERED: GLUC-805 FS (19:37)
[2023-10-21] MEDS ORDERED: ALBU3SOL83 IH (19:37)
[2023-10-21] MEDS ORDERED: PRO5 PO (19:37)
[2023-10-21] MEDS ORDERED: LORA-476 PO (19:37)
[2023-10-22] VITALS (11 sets, daily range): BP systolic 124–133; BP diastolic 35–58; PULSE 65–75; RESP 17–21; TEMP 98.3–99.6; O2SAT 96–100
[2023-10-22] MEDS: GAUZE TP SCH ×2 (01:53→13:09)
[2023-10-22] MEDS: BLOOD GLUCOSE MONITORING 1 DEV DEV FS SCH ×3 (07:30→16:15)
[2023-10-22 07:34] LABS: ALANINE AMINOTRANSFERASE 15 U/L (12-78); ALBUMIN 1.5 g/dL (3.4-5.0); ALKALINE PHOSPHATASE 55 U/L (50-136); ANION GAP 13.1 (8-16); ASPARTATE AMINOTRANSFERASE 14 U/L (15-37); CALCIUM 8.9 mg/dL (8.5-10.1); CARBON DIOXIDE 25.7 mmol/L (21-32); CHLORIDE 114 mmol/L (98-107); GLUCOSE 74 mg/dL (74-106); POTASSIUM 3.8 mmol/L (3.5-5.1); SODIUM SERUM 149 mmol/L (136-145); TOTAL BILIRUBIN 0.8 mg/dL (0.0-1.0); TOTAL PROTEIN, SERUM 5.9 g/dL (6.4-8.2); UREA NITROGEN, BLOOD 29 mg/dL (7-18)
[2023-10-22 08:07] LABS: BASOPHILS % (AUTO) 0.4 % (0.0-2.0); EOSINOPHILS # (AUTO) 0.4 K/uL (0-0.4); EOSINOPHILS % (AUTO) 3.5 % (0.0-4.0); HEMATOCRIT 21.2 % (36-52); LYMPHOCYTES % (AUTO) 10.3 % (20.5-51.1); MEAN CORPUSCULAR HEMOGLOBIN 29 pg (27-31); MEAN CORPUSCULAR HGB CONC 33 g/dL (33-37); MEAN CORPUSCULAR VOLUME 87.4 fL (80-94); MONOCYTES % (AUTO) 9.7 % (1.7-9.3); NEUTROPHILS # (AUTO) 7.7 K/uL (1.8-7.7); NEUTROPHILS % (AUTO) 76.1 % (42.2-75.2); PLATELET COUNT (AUTO) 371 K/uL (140-450); RED BLOOD CELL COUNT(AUTO) 2.42 MIL/uL (4.20-6.10); RED CELL DISTRIBUTION WIDTH 16.8 % (11.6-13.7); WHITE BLOOD COUNT (AUTO) 10.1 K/uL (4.8-10.8)
[2023-10-22] MEDS: PANTOPRAZOLE 40 MG INJ VIAL IVP SCH (08:44)
[2023-10-22] MEDS: FERROUS SULFATE 300 MG/5 ML UDC GT SCH (08:52)
[2023-10-22] MEDS: SUCRALFATE 1 GM TAB PO SCH ×3 (08:52→16:42)
[2023-10-22] MEDS: MIDODRINE 5 MG TAB PO SCH ×3 (08:52→16:44)
[2023-10-22] MEDS ORDERED: CEFEPIME 2,000 MG in DEXTROSE 5% 100 ML IV SCH ×2 (09:00→21:00)
[2023-10-22] MEDS ORDERED: DEXT 5% /NACL 0.9% 1,000 ML IV SCH (09:05)
[2023-10-22] MEDS: NON ADHERENT DRESSING TP SCH (13:09)
[2023-10-22] MEDS ORDERED: DEXTROSE 50% 50 ML SYR IVP PRN (13:40)
== END 2023-10-22 17:50 | disposition home health service (06) | DRG 870 ==
LOC: MED 14:52 → MTU 18:04 → MIC 10-10 22:14 → MTU 10-16 23:48
PROVIDERS: ADMIT General Practice; ATTEND General Practice
PROC: 5A1955Z Respiratory Ventilation, Greater than 96 Consecutive Hours (ICD-10-PCS; principal; 2023-10-09)
PROC: 05HM33Z Insertion of Infusion Device into Right Internal Jugular Vein, Percutaneous Approach (ICD-10-PCS; 2023-10-10)
PROC: 30233N1 Transfusion of Nonautologous Red Blood Cells into Peripheral Vein, Percutaneous Approach (ICD-10-PCS; 2023-10-15)
PROC: 0DJ08ZZ Inspection of Upper Intestinal Tract, Via Natural or Artificial Opening Endoscopic (ICD-10-PCS; 2023-10-15)
DX: A41.9 Sepsis, unspecified organism (principal); J69.0 Pneumonitis due to inhalation of food and vomit; J96.21 Acute and chronic respiratory failure with hypoxia; N17.0 Acute kidney failure with tubular necrosis; R65.21 Severe sepsis with septic shock; J15.1 Pneumonia due to Pseudomonas; K20.91 Esophagitis, unspecified with bleeding; N39.0 Urinary tract infection, site not specified; E46 Unspecified protein-calorie malnutrition; K31.6 Fistula of stomach and duodenum; K92.2 Gastrointestinal hemorrhage, unspecified; Z99.11 Dependence on respirator [ventilator] status; Z66 Do not resuscitate; D64.9 Anemia, unspecified; E11.9 Type 2 diabetes mellitus without complications; E78.5 Hyperlipidemia, unspecified; F09 Unspecified mental disorder due to known physiological condition; I10 Essential (primary) hypertension; E87.6 Hypokalemia; G80.9 Cerebral palsy, unspecified; R13.10 Dysphagia, unspecified; Z20.822 Contact with and (suspected) exposure to COVID-19; F79 Unspecified intellectual disabilities; I48.91 Unspecified atrial fibrillation; Z68.25 Body mass index [BMI] 25.0-25.9, adult; K42.9 Umbilical hernia without obstruction or gangrene; D37.9 Neoplasm of uncertain behavior of digestive organ, unspecified; X58.XXXA Exposure to other specified factors, initial encounter; Z85.46 Personal history of malignant neoplasm of prostate; Z93.0 Tracheostomy status; Z93.1 Gastrostomy status; Z93.3 Colostomy status
CPT/HCPCS: 36415; 36600; 71045; 80048; 80053; 80202; 81001; 82550; 82803; 82948; 83036; 83605; 83735; 84100; 84478; 84484; 85025; 85610; 86886; 86900; 86901; 86920; 87040; 87070; 87081; 87086; 87205; 93005; 94002; 94003; 94640; 94761; 96365; 96366; 96367; 96375; 99291; 99292; A9153; C9113; J0456; J0692; J1450; J1644; J1815; J1940; J2001; J2060; J2185; J2250; J2543; J2704; J3010; J3370; J3475; J3480; J3490; J7030; J7060; P9016; P9046; Q0092